=== PATIENT | female | born 1930 | race Caucasian/White ===

== ENCOUNTER 2017-01-07 07:11 | Day surgery (SDC) | payer MEDICARE ==
[2017-01-07] MEDS ORDERED: Propofol 200 MG/20 ML SDV ONE (07:31)
[2017-01-07] MEDS ORDERED: fentaNYL 100 MCG/2 ML SDV ONE (07:31)
[2017-01-07] MEDS ORDERED: Sodium Chloride 0.9% 1,000 ML IV SCH (07:45)
[2017-01-07 10:21] VITALS: BP 122/63
--- NOTE | 2017-01-07 13:15 | OR ---
DATE OF PROCEDURE: 01/07/2017 PROCEDURE: Colonoscopy. FINDINGS: 1. Ascending colon polyp, approximately 5 mm, completely removed using cold biopsy forceps. 2. Transverse colon polyp, approximately 5 mm, completely removed using hot snare. 3. Descending colon polyp, approximately 5 mm, completely removed using cold biopsy forceps. 4. Diverticulosis, moderate, but limited to sigmoid colon without any complications. COMPLICATIONS: None. STOPPER MAKER: None. ANESTHESIA: MAC. PREOPERATIVE DIAGNOSIS: Family history of rectal cancer/history of polyps. POSTOPERATIVE DIAGNOSIS: Family history of rectal cancer/history of polyps. RISKS: Risks, benefits, alternatives, and limitations including, but not limited to infection, bleeding, and perforation were explained to the patient, and she wished to proceed. PROCEDURE IN DETAIL: The patient was placed in left lateral decubitus position. Digital rectal exam was performed without abnormality. The scope was introduced and advanced atraumatically to the ileocecal valve. The scope was brought back to the ascending, transverse, descending colon, and retroflexed. The aforementioned polyps were identified and completely removed. The patient's diverticulosis would be described as moderate but limited to sigmoid colon without any evidence of bleeding or diverticulitis. No abnormalities on retroflexion. The patient tolerated the procedure well. Luc Strauss MD /[id number]
== END 2017-01-07 10:30 | disposition home or self-care (01) ==
LOC: JP.SDS 07:11
PROVIDERS: ATTEND Surgery
DX: Z12.11 Encounter for screening for malignant neoplasm of colon (principal); D12.2 Benign neoplasm of ascending colon; D12.3 Benign neoplasm of transverse colon; D12.4 Benign neoplasm of descending colon; K57.30 Diverticulosis of large intestine without perforation or abscess without bleeding; Z86.010 Personal history of colon polyps; I25.10 Atherosclerotic heart disease of native coronary artery without angina pectoris; E78.00 Pure hypercholesterolemia, unspecified; E11.22 Type 2 diabetes mellitus with diabetic chronic kidney disease; I12.9 Hypertensive chronic kidney disease with stage 1 through stage 4 chronic kidney disease, or unspecified chronic kidney disease; N18.3 Chronic kidney disease, stage 3 (moderate); E03.9 Hypothyroidism, unspecified; K21.9 Gastro-esophageal reflux disease without esophagitis; E66.9 Obesity, unspecified; Z88.8 Allergy status to other drugs, medicaments and biological substances; Z95.5 Presence of coronary angioplasty implant and graft; Z90.49 Acquired absence of other specified parts of digestive tract; Z96.649 Presence of unspecified artificial hip joint; Z96.659 Presence of unspecified artificial knee joint; Z68.30 Body mass index [BMI] 30.0-30.9, adult
CPT/HCPCS: 45380; 45385; J2704; J3010; J7040; 88305

== ENCOUNTER 2020-12-11 06:38 | Emergency (ER) | payer MEDICARE ==
[2020-12-11] MEDS ORDERED: Ondansetron 4 MG/2 ML SDV IVPUSH PRN (06:45)
[2020-12-11] MEDS ORDERED: Pantoprazole 40 MG Vial IVPUSH ONE (06:45)
[2020-12-11] MEDS ORDERED: Sodium Chloride 0.9% 10 ML Syringe FLUSH PRN (06:45)
--- NOTE | 2020-12-11 06:53 | EDM.PDOC ---
<Carli York - Last Filed: 12/11/20 06:48> ED HPI GENERAL MEDICAL PROBLEM - General Chief Complaint: Chest Pain Stated Complaint: MEDICAL [facility] Time Seen by Provider: 12/11/20 06:44 Source of Information: Reports: Patient, EMS History Limitations: Reports: No Limitations - History of Present Illness INITIAL COMMENTS - FREE TEXT/NARRATIVE: Patient presents to the emergency room today via EMS secondary to acute onset of chest pain when asked where chest pain is located she points to lower sternal epigastric area states that she woke up around 5 with severe pain she would not rated it (although its unclear if she was hearing all my questions even when ask/repeated multiple times). She took 2 nitros that she had at home with some relief, she states that she was worried because they were since 2017. EMS provided 325 mg of aspirin in route and at time of arrival in initial exam patient denies any current pain. Patient says that she had poor sleep last night was up most of the night but she is very nondescript and unable to pinpoint any specific complaints related to that. PMH/Meds--reviewed in EMR as patient can not recall Allergies--amlodipine, clopidogrel, codeine, enalapril/lisinopril, isosorbide, tramadol Denies--tob/etoh/drug use history Onset: Today, Sudden Onset Date: 12/11/20 Onset Time: 05:00 Duration: Other (resolved at time of arrival (after 2 NTG & 325mg ASA given en route by EMS)) Associated Symptoms: Reports: No Other Symptoms - Related Data Allergies Allergy/AdvReac Type Severity Reaction Status Date / Time amlodipine Allergy Other Verified 12/11/20 06:43 clopidogrel bisulfate Allergy Cannot Verified 12/11/20 06:43 [From Plavix] Remember codeine Allergy Cannot Verified 12/11/20 06:43 Remember enalapril [Enalapril] Allergy Cannot Verified 12/11/20 06:43 Remember isosorbide [From Imdur] Allergy Other Verified 12/11/20 06:43 lisinopril Allergy Swelling Verified 12/11/20 06:43 pravastatin Allergy Cannot Verified 12/11/20 06:43 Remember tramadol Allergy Cannot Verified 12/11/20 06:43 Remember Home Meds: Home Meds Aspirin [Eva Chewable] 81 mg PO DAILY 04/09/13 [History] Furosemide 80 mg PO DAILY 04/09/13 [History] Levothyroxine Sodium [Tirosint] 50 mcg PO DAILY 04/09/13 [History] Potassium Chloride 10 meq PO BID 04/09/13 [History] Spironolactone 12.5 mg PO DAILY 04/09/13 [History] allopurinoL [Allopurinol] 100 mg PO DAILY 04/09/13 [History] carvediloL [Carvedilol] 6.25 mg PO BID 04/09/13 [History] metFORMIN HCl [Metformin HCl ER] 500 mg PO BID 04/09/13 [History] Nitroglycerin [Nitrostat] 0.4 mg SL ASDIRECTED PRN 01/16/14 [History] Bismuth Subsalicylate [Pepto Bismol] 262 mg PO ASDIRECTED PRN 05/25/16 [History] Loratadine [Claritin] 10 mg PO ASDIRECTED PRN 05/25/16 [History] Simethicone 125 mg PO ASDIRECTED PRN 05/25/16 [History] Famotidine 20 mg PO DAILY PRN 01/05/17 [History] Isosorbide Dinitrate [Isordil] 5 mg PO DAILY 01/07/17 [History] glyBURIDE [Glyburide] 2.5 mg PO DAILY 01/07/17 [History] Past Medical History HEENT History: Reports: Allergic Rhinitis, Cataract, Impaired Vision, Sinusitis Cardiovascular History: Reports: Angina, Hypertension, PR, SOB on Exertion Other Cardiovascular History: chf Respiratory History: Reports: None Gastrointestinal History: Reports: Cholelithiasis, Colon Polyp, GERD Genitourinary History: Reports: None, Other (See Below) Other Genitourinary History: stage 3 kidney disease [employer] History: Reports: Musculoskeletal History: Reports: Arthritis, Back Pain, Chronic, Gout Other Musculoskeletal History: rt hip Neurological History: Reports: None Psychiatric History: Reports: None Endocrine/Metabolic History: Reports: Diabetes, Type II, Hypothyroidism, Obesity/BMI 30+ Hematologic History: Reports: None Immunologic History: Reports: None Oncologic (Cancer) History: Reports: None Dermatologic History: Reports: None - Infectious Disease History Infectious Disease History: Reports: C-Difficile, Measles, Mumps - Past Surgical History Head Surgeries/Procedures: Reports: None HEENT Surgical History: Reports: Cataract Surgery Cardiovascular Surgical History: Reports: Coronary Artery Stent GI Surgical History: Reports: Cholecystectomy, Colonoscopy Female Surgical History: Reports: None, Section Endocrine Surgical History: Reports: None Musculoskeletal Surgical History: Reports: Hip Replacement, Knee Replacement Social & Family History - Tobacco Use Tobacco Use Status *Q: Never Tobacco User Second Hand Smoke Exposure: No - Caffeine Use Caffeine Use: Reports: None - Recreational Drug Use Recreational Drug Use: No ED ROS GENERAL - Review of Systems Review Of Systems: Comprehensive ROS is negative, except as noted in HPI. Cardiovascular: Reports: Chest Pain ED EXAM, GENERAL - Physical Exam Exam: See Below Exam Limited By: No Limitations (although somewhat poor historian) General Appearance: Alert, WD/WN, No Apparent Distress Eye Exam: Bilateral Eye: EOMI, Normal Inspection, PERRL Ears: Normal External Exam, Hearing Grossly Normal Nose: Normal Inspection Throat/Mouth: Normal Inspection, Normal Oropharynx, Normal Voice, No Airway Compromise Head: Atraumatic, Normocephalic Neck: Normal Inspection, Supple, Non-Tender, Full Range of Motion Respiratory/Chest: No Respiratory Distress, Lungs Clear, Normal Breath Sounds, Chest Non-Tender Cardiovascular: Normal Peripheral Pulses, Regular Rate, Rhythm, No Edema, No Murmur Peripheral Pulses: 2+: Radial (L), Radial (R) GI/Abdominal: Normal Bowel Sounds, Soft, Non-Tender (Female) Exam: Deferred Rectal (Female) Exam: Deferred Back Exam: Normal Inspection Extremities: Normal Inspection, Normal Range of Motion, No Pedal Edema, Normal Capillary Refill Neurological: Alert, Oriented, Normal Cognition, No Motor/Sensory Deficits Psychiatric: Normal Affect, Normal Mood Skin Exam: Warm, Dry, Intact, Normal Color Course - Vital Signs Text/Narrative:: 0700--report given to Dr Ramirez, ER at change of shift/transfer of care Departure - Departure Disposition: Home, Self-Care 01 Clinical Impression: Gastritis Qualifiers: Gastritis type: superficial Chronicity: acute Gastritis bleeding: without bleeding Qualified Code(s): K29.00 - Acute gastritis without bleeding Instructions: Gastritis, Adult, [id number] Referrals: PCP,None [Primary Care Provider] - Forms: ED Department Discharge Additional Instructions: Hold your aspirin for 3 days, if your doctor OK's you to resume, then make sure you take it with a full meal to protect your stomach. I would like you to see your doctor for recheck within the week, call for an appt. Take an antacid of choice 30 ml after bed and at bedtime until you see your doctor. Return if worse. Sepsis Event Note (ED) - Evaluation Sepsis Screening Result: No Definite Risk <PaulinaChuck max - Last Filed: 12/11/20 10:03> #1 Interpretation EKG Date: 12/11/20 Time: 06:50 Rhythm: NSR Rate (Beats/Min): 61 [place]: Normal P-Wave: Present QRS: Normal ST-T: Normal QT: Normal Comparison: No Change Course - Vital Signs Last Recorded V/S: Last Vital Signs Temp 36.6 C 12/11/20 06:45 Pulse 57 L 12/11/20 08:10 Resp 11 L 12/11/20 07:45 BP 137/65 12/11/20 08:10 Pulse Ox 96 12/11/20 08:10 - Orders/Labs/Meds Orders: Active Orders 24 hr Category Date Time Status Cardiac Monitoring [RC] .As Directed Care 12/11/20 06:45 Active EKG Documentation Completion [RC] ASDIRECTED Care 12/11/20 06:46 Active Oxygen Therapy [RC] PRN Care 12/11/20 06:45 Active Pulse Oximetry [RC] CONTINUOUS Care 12/11/20 06:45 Active Ondansetron [Zofran] Med 12/11/20 06:45 Active 4 mg IVPUSH Q6H PRN Sodium Chloride 0.9% [Saline Flush] Med 12/11/20 06:45 Active 10 ml FLUSH ASDIRECTED PRN ED Antiemetic Medication Reflex [OM.PC] Stat Oth 12/11/20 06:45 Ordered ED GI Medications Reflex [OM.PC] Stat Oth 12/11/20 06:46 Ordered Saline Lock Insert [OM.PC] Stat Oth 12/11/20 06:45 Ordered EKG 12 Lead [EK] Stat Ther 12/11/20 06:46 Ordered Medication Orders Ondansetron HCl (Ondansetron 4 Mg/2 Ml Sdv) 4 mg IVPUSH Q6H PRN PRN Reason: Nausea/Vomiting Sodium Chloride (Sodium Chloride 0.9% 10 Ml Syringe) 10 ml FLUSH ASDIRECTED PRN PRN Reason: Keep Vein Open Labs: Laboratory Tests 12/11/20 12/11/20 12/11/20 Range/Units 06:54 06:56 06:56 WBC 7.6 (4.5-11.0) K/uL RBC 4.84 (3.30-5.50) M/uL Hgb 14.5 (12.0-15.0) g/dL Hct 42.5 (36.0-48.0) % MCV 88 (80-98) fL MCH 30 (27-31) pg MCHC 34 (32-36) % Plt Count 254 (150-400) K/uL Neut % (Auto) 42.1 (36-66) % Lymph % (Auto) 45.7 H (24-44) % Stewart % (Auto) 7.9 H (2-6) % Eos % (Auto) 3.5 (2-4) % Baso % (Auto) 0.8 (0-1) % PT 10.8 (9.5-12.0) sec INR 0.99 (0.80-1.20) APTT 26.4 L (27.0-36.0) sec Sodium (140-148) mmol/L Potassium (3.6-5.2) mmol/L Chloride (100-108) mmol/L Carbon Dioxide (21-32) mmol/L Anion Gap (5.0-14.0) mmol/L BUN (7-18) mg/dL Creatinine (0.6-1.0) mg/dL Est Cr Clr Drug Dosing mL/min Estimated GFR (MDRD) (>60) Glucose (74-106) mg/dL POC Glucose 133 H (74-106) mg/dL Calcium (8.5-10.1) mg/dL Magnesium (1.8-2.4) mg/dL Total Bilirubin (0.2-1.0) mg/dL AST (15-37) U/L ALT (12-78) U/L Alkaline Phosphatase (46-116) U/L Troponin I (0.000-0.056) ng/mL Total Protein (6.4-8.2) g/dL Albumin (3.4-5.0) g/dL Globulin (2.3-3.5) g/dL Albumin/Globulin Ratio (1.2-2.2) 12/11/20 12/11/20 12/11/20 Range/Units 06:56 08:39 08:40 WBC (4.5-11.0) K/uL RBC (3.30-5.50) M/uL Hgb (12.0-15.0) g/dL Hct (36.0-48.0) % MCV (80-98) fL MCH (27-31) pg MCHC (32-36) % Plt Count (150-400) K/uL Neut % (Auto) (36-66) % Lymph % (Auto) (24-44) % Stewart % (Auto) (2-6) % Eos % (Auto) (2-4) % Baso % (Auto) (0-1) % PT (9.5-12.0) sec INR (0.80-1.20) APTT (27.0-36.0) sec Sodium 140 (140-148) mmol/L Potassium 3.8 (3.6-5.2) mmol/L Chloride 100 (100-108) mmol/L Carbon Dioxide 27 (21-32) mmol/L Anion Gap 12.9 (5.0-14.0) mmol/L BUN 24 H (7-18) mg/dL Creatinine 1.3 H (0.6-1.0) mg/dL Est Cr Clr Drug Dosing 22.57 mL/min Estimated GFR (MDRD) 39 L (>60) Glucose 142 H (74-106) mg/dL POC Glucose 153 H (74-106) mg/dL Calcium 9.0 (8.5-10.1) mg/dL Magnesium 1.9 (1.8-2.4) mg/dL Total Bilirubin 0.5 (0.2-1.0) mg/dL AST 22 (15-37) U/L ALT 30 (12-78) U/L Alkaline Phosphatase 70 (46-116) U/L Troponin I < 0.017 < 0.017 (0.000-0.056) ng/mL Total Protein 7.0 (6.4-8.2) g/dL Albumin 3.5 (3.4-5.0) g/dL Globulin 3.5 (2.3-3.5) g/dL Albumin/Globulin Ratio 1.0 L (1.2-2.2) Meds: Medications Generic Name Dose Route Start Last Admin Trade Name Freq PRN Reason Stop Dose Admin Ondansetron HCl 4 mg 12/11/20 06:45 Ondansetron 4 Mg/2 Ml Sdv IVPUSH Q6H PRN Nausea/Vomiting Sodium Chloride 10 ml 12/11/20 06:45 Sodium Chloride 0.9% 10 Ml Syringe FLUSH ASDIRECTED PRN Keep Vein Open Discontinued Medications Generic Name Dose Route Start Last Admin Trade Name Freq PRN Reason Stop Dose Admin Pantoprazole Sodium 40 mg 12/11/20 06:45 12/11/20 07:43 Pantoprazole 40 Mg Vial IVPUSH 12/11/20 06:46 40 mg ONETIME ONE Administration - Re-Assessments/Exams Free Text/Narrative Re-Assessment/Exam: 12/11/20 10:00 ambulated with nursing after 2nd normal Trop. No pain recurrence. Will discharge on GI tx. Departure - Departure Time of Disposition: 10:05 Condition: Fair Sepsis Event Note (ED) - Focused Exam Vital Signs: Vital Signs Temp Pulse Resp BP Pulse Ox 12/11/20 08:10 57 L 137/65 96 12/11/20 07:45 57 L 11 L 134/71 98 12/11/20 06:45 36.6 C 67 11 L 156/79 H 99 12/11/20 06:41 36.6 C 67 11 L 156/79 H 99
[2020-12-11 07:46] VITALS: PULSE 57
[2020-12-11 08:30] VITALS: BP 137/65
--- NOTE | 2020-12-11 08:59 | CR ---
CHEST: Portable 12/11/2020 at 7:58 AM CLINICAL HISTORY:Chest pain COMPARISON:2011 FINDINGS: The heart size, pulmonary vascularity and hilar structures are normal. No infiltrate effusion or pneumothorax is seen. There are atherosclerotic changes in the aorta. IMPRESSION: No acute cardiopulmonary process.
== END 2020-12-11 10:47 | disposition home or self-care (01) ==
LOC: JP.ED 06:38
DX: K29.00 Acute gastritis without bleeding (principal); I13.0 Hypertensive heart and chronic kidney disease with heart failure and stage 1 through stage 4 chronic kidney disease, or unspecified chronic kidney disease; E11.22 Type 2 diabetes mellitus with diabetic chronic kidney disease; N18.30 Chronic kidney disease, stage 3 unspecified; I50.9 Heart failure, unspecified; E03.9 Hypothyroidism, unspecified; E66.9 Obesity, unspecified; I25.2 Old myocardial infarction; Z88.8 Allergy status to other drugs, medicaments and biological substances; Z88.5 Allergy status to narcotic agent; Z79.84 Long term (current) use of oral hypoglycemic drugs; Z79.899 Other long term (current) drug therapy; Z68.30 Body mass index [BMI] 30.0-30.9, adult; Z79.82 Long term (current) use of aspirin
CPT/HCPCS: 36415; 71045; 80053; 82947; 83735; 84484; 85025; 85610; 85730; 93005; 96374; 99284; 99285; C9113